=== PATIENT | male | born 1990 | race Caucasian/White ===

== ENCOUNTER 2017-05-30 23:07 | Emergency (ER) | payer SELFPAY ==
[~2017-05-30] VITALS: Ht 182.9 cm; Wt 123.7 kg
[2017-05-30 23:33] LABS: ADD MIUA? YES; BILIRUBIN NEGATIVE; BLOOD SMALL; COLOR STRAW ((YELLOW)); GLUCOSE (STRIP) NEGATIVE; KETONES NEGATIVE; LEUKOCYTES NEGATIVE; NITRITE NEGATIVE; PROTEIN (STRIP) 30; SPECIFIC GRAVITY 1.004 (1.000-1.030); UROBILINOGEN 0.2 MG/DL (0.2-1.0)
[2017-05-30 23:40] LABS: BACTERIA RARE /HPF; EPITHELIAL CELLS RARE /HPF; HYALINE CASTS 0-5 /LPF; MUCUS NONE SEEN /LPF; RED BLOOD CELLS 0-5 /HPF (0-5); UCUL ADDED? NO; WHITE BLOOD CELLS 0-5 /HPF (0-5)
[2017-05-30 23:43] LABS: AMPHETAMINE NEGATIVE (500 ng/mL); BARBITURATES NEGATIVE (200 ng/mL); BENZODIAZEPINES NEGATIVE (150 ng/mL); COCAINE NEGATIVE (150 ng/mL); INTERNAL CONTROLS VALID? YES; METHADONE NEGATIVE (200 ng/mL); METHAMPHETAMINE NEGATIVE (500 ng/mL); OPIATES (MORPHINE) NEGATIVE (100 ng/mL); OXYCODONE NEGATIVE (100 ng/mL); PHENCYCLIDINE NEGATIVE (25 ng/mL); PROPOXYPHENE NEGATIVE (300 ng/mL); THC CANNABINOIDS NEGATIVE (50 ng/mL); TRICYCLIC ANTIDEPRESSANTS NEGATIVE (300 ng/mL)
[2017-05-31 00:02] LABS: HEMATOCRIT 43.2 % (38.0-50.0); MCH 28.9 PG (29.0-34.0); MCV 82.8 FL (86-99); MEAN PLAT.VOLUME 9.8 uM^3 (9.0-12.4); PLATELET COUNT 277 K/uL (156-360); RBC DIS.WIDTH-CV 11.5 % (11.8-14.6); RBC DIS.WIDTH-SD 34.7 % (39-53); RED BLOOD COUNT 5.22 M/uL (4.00-5.50); WHITE BLOOD COUNT 7.6 K/uL (4.1-10.2)
[2017-05-31 00:11] LABS: CHLORIDE 107 mEq/L (99-109); POTASSIUM 4.1 mEq/L (3.7-5.4); SODIUM 142 mEq/L (136-147)
[2017-05-31 00:13] LABS: GLUCOSE 113 mg/dL (70-99)
[2017-05-31 00:15] LABS: ANION GAP 12 MEQ/L (2-14); TOTAL BILIRUBIN 0.5 mg/dL (0.0-1.0)
[2017-05-31 00:16] LABS: SERUM ETHYL ALCOHOL 156 mg/dL
[2017-05-31 00:17] LABS: ALKALINE PHOSPHATASE 63 IU/L (3-129); GFR ESTIMATE (CALCULATED) > 59 mL/min/
[2017-05-31 00:18] LABS: UREA NITROGEN (BUN) 14 mg/dL (9-23)
[2017-05-31 03:35] VITALS: BP 125/87
== END 2017-05-31 03:45 | disposition home or self-care (01) ==
LOC: EME 23:07 → EDBD 23:07 → EME 05-31 03:45
PROVIDERS: Emergency Medicine
DX: F43.10 Post-traumatic stress disorder, unspecified (principal); F10.129 Alcohol abuse with intoxication, unspecified
CPT/HCPCS: 80053; 81003; 85027; 90837; 99281; 99285; G0480